=== PATIENT | female | born 1960 | race Caucasian/White ===

== ENCOUNTER 2017-03-19 09:51 | Day surgery (SDC) | payer OTHER ==
[2017-03-19] VITALS (8 sets, daily range): BP systolic 88–121; BP diastolic 59–80; PULSE 64–93; RESP 16; O2SAT 97–100
[~2017-03-19] VITALS: Ht 170.2 cm; Wt 65.8 kg
[~2017-03-19 09:51] MED LIST: Lactated Ringer's 1,000 ML IV ONE; MULT1CAP33 PO
[2017-03-19] MEDS ORDERED: Glycopyrrolate 0.2 MG/ML 1mL Inj ONE (09:52)
[2017-03-19] MEDS ORDERED: Ketamine 10 mg/mL 20 mL Inj ONE (09:52)
[2017-03-19] MEDS ORDERED: Propofol 10,000 mCg/mL 20 mL Inj ONE (09:52)
--- NOTE | 2017-03-19 10:22 | PCM.HPANE ---
Patient Data Date of Service: Mar 19, 2017 Surgeon Admitting Provider: Attending Provider:Home Burrows MD Primary Care Physician:Ford Valente Other Provider:Russel Bronson Anesthesia Reason for Visit Blood In Stool Ht/WT & BMI Height (Feet): 5 Height (Inches): 7 Weight (Kilograms): 65.77 Body Mass Index 22.00 Allergies Coded Allergies: Latex (Verified Allergy, Mild, Hives, 03/19/17) Penicillins (Verified Allergy, Mild, 03/15/17) Tetracyclines (Verified Allergy, Mild, 03/15/17) Past Anesthesia History Anesthesia History: Positive for:: Anesthesia Reactions (PONV & presyncope), Denies:: Fam Anesthesia Reaction, Fam Malignant Hypertherm, Malignant Hyperthermia Diabetes History Hx Diabetes?: No MRSA MRSA: No Medications Hypertension Medication: No Home Meds Incl Beta Bina: No Reported Medications Multivitamin (Multivitamins)1 Each Capsule1 Each PO DAILY 03/15/17 History History of ENT Problems?: No HEENT History: Denies:: Abnormal Airway Difficult Intubation Denture Type: None Teeth Condition: Broken Teeth Tooth Decay Missing Teeth Hx of Heart Problems?: No Cardiovascular History: Denies:: Chest Pain Coronary Artery Disease Other Cardiac History: no [place] Hx of Respiratory Problem?: No Respiratory History: Denies:: Dyspnea Hx Neurologic Problems?: No Neurological History: Denies:: CVA Seizures TIA Hx of GI Problems?: Yes Gastrointestinal History: Denies:: Gastroesphageal Reflux Gastrointestinal Bleeding Other GI Pertinent History: history of colon polyps Hx of Problems?: No Female Hx: Denies:: Currently Other History/Comment ovarian cysts Skin History: Positive for:: History Skin Disorders? Other Skin Pertinent History: skin cancer removed chest - squamous cell carcinoma; L arm - basal cell carcinoma Hx Musculoskeletal Problems?: No Hx of Psycho/Social Problems?: No Psycho Social History: Positive for:: Anxiety Hx Surgeries?: Yes (abdominal, tonsil, laparascopy/laparotomy, colonoscopy, skin cancers removed) Hx Any Other Health Problems?: No Other History: Positive for:: Hospitalization History Blood Transfusions: Positive for:: Accept Blood Products? Denies:: Blood Transfusions Hx Diabetes: No Hx Alcohol Use: Yes (daily glass of wine)Hx Substance Use: Yes (smoking marijuana - last use 11/2016) Smoking Status: Never Smoker Have You Smoked inLast 12 mo: No Stop/Bang Treated for Sleep Apnea?: No Do You Have a CPAP Machine?: No S-Snoring: Do You Snore Loudly: No T-Tired: feel tired, fatigued: Yes O-Obsered: Observed not breath: No P-Blood Pressure: treated: No B- Body Mass Index > 35 kg/m2: No A- Age over 50: Yes N- Neck Large Circumference: No G- Gender Male: No ZACHERY Total Score: 2 ZACHERY Risk Assessment: Low Risk, <3 Yes Risk Assessment Category Category 1A: Patient has history of documented sleep apnea, and HAS NOT received any narcotic, sedative or anesthesia administration during this stay. Category 1B: Patient has history of documented sleep apnea, and HAS received any narcotic , sedative or anesthesia administration during this stay Category 2: Patient has SUSPECTED Obstructive Sleep Apnea, and HAS received any narcotic , sedative or anesthesia administration during this stay. Category 3: Patient has SUSPECTED Obstructive Sleep Apnea and HAS NOT received narcotic, sedative or anesthesia administration during this stay. Category 4: Outpatient in Procedural Areas with known sleep apnea or who screen positive for High Risk via the STOP/BANG questionnaire. Exam Exam Vital Signs Vital Signs Date Time Temp Pulse Resp B/P Pulse Ox O2 Delivery O2 Flow Rate FiO2 03/19/17 10:12 36.6 76 16 121/80 99 Room Air General Appearance: Alert, Oriented X3, Cooperative, No Acute Distress HEENT/AIRWAY: MP 2, Neck Movement (FROM), Mouth Opening (>3), Other (tmd>3) Lungs: Normal Air Movement Heart: Exam Unremarkable, Regular Rate/Rhythm, Normal S1, Normal S2, No Murmurs /Rubs/Gallops Plan Impression Patient chart reviewed, patient interviewed and anesthestic plan with risks, benefits, and alternatives discussed, and informed consent obtained. NPO per Anesth. Guidelines: Yes ASA Physical Status: ASA2 Mod Systemic Disease Anesthetic Plan: TIVA Bene/Risks/Altern/Consents: Yes HP Complete Prior to Induction: Yes Hao Gary MD Mar 19, 2017 10:22
--- NOTE | 2017-03-19 11:34 | ENDO ---
[address] [address] ENDOSCOPY PROCEDURE PATIENT: NESTOR JASSO : 1960 MR#: [id number] ADMIT: 03/19/2017 JOB ID: [id number] DATE OF SERVICE: 03/19/2017 TYPE OF OPERATION: Colonoscopy. PREOPERATIVE DIAGNOSIS(ES): 1. Rectal bleeding. 2. History of tubular adenoma polyps. POSTOPERATIVE DIAGNOSIS: Moderate internal hemorrhoids. ANESTHESIA: Monitored anesthesia care. COMPLICATIONS: None. BLOOD LOSS: Minimal. DESCRIPTION OF PROCEDURE: After risks and benefits were explained to the patient, informed consent was obtained. After anesthesia administered, colonoscope was inserted per rectum to the terminal ileum. Mucosa was carefully examined. Prep of the patient was excellent. After the procedure down, scope withdrawn, and procedure terminated. FINDINGS: Upon inspection of the anus no masses, hemorrhoids, ulcers, or fissures that were seen. Throughout the entire examination, there were no polyps, masses, or lesions. Intubation to the terminal ileum revealed no blood. Retroflexion showed moderate internal hemorrhoids. IMPRESSIONS: Moderate internal hemorrhoids. RECOMMENDATIONS: 1. Stool softener as needed. 2. Repeat colonoscopy in five years given the history of tubular adenoma polyps. 3. Follow up in GI clinic as needed.
--- NOTE | 2017-03-19 16:17 | PCM.ANEP1 ---
Post Anesthesia PACU Phase 1 Assessment Date of Service: Mar 19, 2017 Vital Signs Vital Signs Date Time Temp Pulse Resp B/P Pulse Ox O2 Delivery O2 Flow Rate FiO2 03/19/17 12:02 64 16 105/69 100 Room Air 03/19/17 11:34 84 110/71 100 Room Air 03/19/17 11:28 67 101/70 98 Room Air 03/19/17 11:19 72 107/68 100 Room Air 03/19/17 11:08 93 95/73 100 Room Air 03/19/17 10:57 89 88/71 99 Room Air 03/19/17 10:47 78 92/59 97 Room Air 03/19/17 10:12 36.6 76 16 121/80 99 Room Air Anesthetic Administered: TIVA Level of Alertness: Awake, talking GARZA's with Equal Strength: Yes Pain: No Pain Scale Score: 0 Nausea or Vomiting: No CV Function & Hydration Stable: Yes Airway Device: none Oxygen Delivery: Nasal Cannula Lungs: Normal Air Movement Summary 03/19/17 12:02 64 16 105/69 100 Room Air PACU Phase 2 Assessment Complications: No Follow up Care: N/A Patient Instructions Provided: N/A Hao Gary MD Mar 19, 2017 16:17
== END 2017-03-19 23:59 | disposition home or self-care (01) ==
LOC: END 09:51
PROVIDERS: ATTEND Internal Medicine Gastroenterology
DX: K62.5 Hemorrhage of anus and rectum (principal); K64.8 Other hemorrhoids; Z92.83 Personal history of failed moderate sedation; Z86.010 Personal history of colon polyps
CPT/HCPCS: 45378; J2250; J2704; J7120